=== PATIENT | female | born 1995 | race Caucasian/White ===

== ENCOUNTER 2019-11-09 22:09 | Inpatient (IN) ==
[2019-11-09] MEDS ORDERED: LORazepam 0.5 MG TAB PO STA (22:45)
--- NOTE | 2019-11-09 22:52 | Emergency Department Note ---
Entered by Khushboo Alvarado acting as a scribe for History of Present Illness General Chief complaint: Mental Health Evaluation Stated complaint: MENTAL HEALTH EVALUATION Time Seen by Provider: 11/09/19 22:31 Source: patient History of Present Illness Onset (ago): minute(s) (30) Location: head (general) Pain Consistency: + other (episode) Quality: + other (anxiety attack) Associated symptoms: + other (hearing voices) The patient is a 24 year old female who presents to the Emergency Room with complaints of an episode of an anxiety attack in which the patient was worried about stabbing herself occurring 30 minutes ago. She states there were a number of voices in her head telling her all the things she needed to do. The patient denies any previous attempts to hurt herself or previous admissions to the hospital. She denies calling any crisis hotlines tonight. She states she has a therapist, but notes it is only a text message service which she does not think helps. The patient reports she is paroxetine which she did not take tonight. She denies any recent sickness. She reports her last normal menstrual period was a few days ago. Home Medications Home Medications Medication Instructions Recorded Confirmed Type ondansetron 4 mg PO BID PRN 06/22/19 11/09/19 History paroxetine HCl 20 mg PO DAILY 08/28/19 11/09/19 History promethazine 12.5 mg PO Q6H PRN 08/31/19 11/09/19 History Allergies Allergy/AdvReac Type Severity Reaction Status Date / Time No Known Allergies Allergy Verified 08/31/19 21:39 Past Med/Surg History Medical History Anxiety (Chronic) Chronic ITP (idiopathic thrombocytopenia) (Chronic) IBS (irritable bowel syndrome) (Chronic) Surgical History History of ear surgery (Resolved) Right Family History Other No pertinent family history Social History Preferred Language: Tajik Feels Safe at Home: Yes Smoking Status: Never smoker Review of Systems See HPI for pertinent positives & negatives. and A total of 10 systems reviewed and were otherwise negative Physical Exam Vital Signs Vital Signs - 24 hr 11/09/19 22:21 11/10/19 00:05 11/10/19 02:20 Temperature 36.7 C Temperature Source Oral Pulse Rate 86 76 Pulse Rate [Finger] 67 Respiratory Rate 18 16 16 Respiratory Effort / Characteristics Non-Labored Spontaneous Non-Labored Spontaneous Respiratory Depth Normal Normal Respiratory Pattern Regular Blood Pressure 115/69 119/78 Blood Pressure [Left Arm] 96/50 L Blood Pressure Mean 84 Blood Pressure Mean [Left Arm] 65 Blood Pressure Position Sitting Pulse Oximetry 100 99 98 Oxygen Delivery Method Room Air Room Air Room Air Sepsis Recent Fever Within 48 Hours No Sepsis New/Unexplained Change in Mental Status No Sepsis Action Taken by Nursing No Action Required GENERAL: The patient is awake and alert. She is somewhat anxious appearing but overall comfortable. EYES: The conjunctivae are clear. The pupils are round and reactive. EARS, NOSE, MOUTH AND THROAT: The nose is without any evidence of any deformity. Mucous membranes are moist. Tongue is midline. NECK: The neck is nontender and supple. RESPIRATORY: Normal respiratory effort is noted there is no evidence of wheezing rhonchi or rales CARDIOVASCULAR: Regular rate and rhythm noted there no murmurs rubs or gallops normal S1 normal S2. GASTROINTESTINAL: The abdomen is soft. Abdomen is nontender. MUSCULOSKELETAL/EXTREMITIES: There is no evidence of gross deformity full range of motion is noted in the hips and shoulders. SKIN: There is no obvious evidence of any rash. There are no petechiae, pallor or cyanosis noted. NEUROLOGIC: Patient is awake alert and oriented x3. PSYCH: The patient is awake and alert. She makes good eye contact. Her affect is flat. She is currently denying any suicidal or homicidal ideation. Course Course 2236: Past medical records reviewed. The patient was evaluated in room A06. A complete history and physical exam was performed. 2300: The patient spoke with Kaelyn and decided she wants to stay in the hosp ital. 0030: The patient is medically clear. 0230: Upon reevaluation, I discussed findings and results with the patient. She verbalized agreement of the treatment plan. The patient will be evaluated for further management and care in [address] [place] [id number]. Administered Medications Discontinued Medications Lorazepam (Ativan) 0.5 mg PO NOW STA Stop: 11/09/19 22:46 Last Admin: 11/09/19 22:49 Dose: 0.5 mg Documented by: [id number] Medical Decision Making Differential Diagnosis Differential diagnoses considered include mood disorder, infection, hy poglycemia, electrolyte abnormalities, cardiac sources, intracerebral event, toxicologic, neurologic, as well as others. Medical Records Attestation: I reviewed the patient's medical records. Home Medications Current Medication List: was personally reviewed by me Laboratory Data Attestation: I reviewed the patient's lab results. Result diagrams: 11/09/19 23:32 11/09/19 23:32 Lab Results 11/09/19 11/09/19 11/09/19 Range/Units 22:45 22:45 23:32 WBC 5.32 (4.8-10.8) K/uL RBC 3.86 L (4.2-5.4) M/uL Hgb 12.0 (12.0-16.0) g/dL Hct 34.9 L (37-47) % MCV 90.4 (80-100) fL MCH 31.1 (25-34) pg MCHC 34.4 (32-36) g/dL RDW Std Deviation 42.9 (36.4-46.3) fL RDW Coeff of Nina 13.3 (11.5-14.5) % Plt Count 56 L (130-400) K/uL MPV 12.4 H (7.4-10.4) fL Immature Gran % (Auto) 0.6 % Neut % (Auto) 60.3 % Lymph % (Auto) 27.8 % [place] % (Auto) 9.6 % Eos % (Auto) 1.3 % Baso % (Auto) 0.4 % Immature Gran # (Auto) 0.03 H (0.00-0.02) K/uL Neut # (Auto) 3.21 (1.4-6.5) K/uL Lymph # (Auto) 1.48 (1.2-3.4) K/uL [place] # (Auto) 0.51 (0.11-0.59) K/uL Eos # (Auto) 0.07 (0-0.5) K/uL Baso # (Auto) 0.02 (0-0.2) K/uL Toxic Vacuolation Occasional Giant Platelets 1+ Polychromasia 1+ Ovalocytes 1+ Sodium (136-145) mmol/L Potassium (3.5-5.1) mmol/L Chloride (98-107) mmol/L Carbon Dioxide (21-32) mmol/L Anion Gap (3-11) BUN (7-18) mg/dl Creatinine (0.6-1.2) mg/dl Est Cr Clr Drug Dosing ml/min Est GFR ( Amer) Est GFR (Non-Af Amer) BUN/Creatinine Ratio (10-20) Glucose (70-99) mg/dl Calcium (8.5-10.1) mg/dl Total Bilirubin (0.2-1) mg/dl AST (15-37) U/L ALT (12-78) U/L Alkaline Phosphatase (45-117) U/L Total Protein (6.4-8.2) gm/dl Albumin (3.4-5.0) gm/dl Globulin (2.5-4.0) gm/dl Albumin/Globulin Ratio (0.9-2) TSH (0.300-4.500) uIu/ml HCG, Qual (Negative) Urine Color Yellow Urine Appearance Clear (Clear) Urine pH 8.0 H (4.5-7.5) Ur Specific [place] 1.024 (1.000-1.030) Urine Protein Negative (Negative) Urine Glucose (UA) Negative (Negative) Urine Ketones Negative (Negative) Urine Blood Negative (Negative) Urine Nitrite Negative (Negative) Urine Bilirubin Negative (Negative) Urine Urobilinogen Positive H (Negative) Ur Leukocyte Esterase Negative (Negative) Salicylates (2.8-20) mg/dl Urine Opiates Screen Neg (Neg) Ur Methadone, Qual Neg (Neg) Acetaminophen (10-30) ug/ml Urine Barbiturates Neg (Neg) Ur Phencyclidine (PCP) Neg (Neg) U Amphetamin/Meth Scrn Neg (Neg) MDMA (Ecstasy) Screen Neg (Neg) U Benzodiazepines Scrn Neg (Neg) Ur Cocaine Metabolite Neg (Neg) U Marijuana (THC) Screen Neg (Neg) Ethyl Alcohol mg/dL (0-3) mg/dl 11/09/19 11/09/19 11/09/19 Range/Units 23:32 23:32 23:32 WBC (4.8-10.8) K/uL RBC (4.2-5.4) M/uL Hgb (12.0-16.0) g/dL Hct (37-47) % MCV (80-100) fL MCH (25-34) pg MCHC (32-36) g/dL RDW Std Deviation (36.4-46.3) fL RDW Coeff of Nina (11.5-14.5) % Plt Count (130-400) K/uL MPV (7.4-10.4) fL Immature Gran % (Auto) % Neut % (Auto) % Lymph % (Auto) % [place] % (Auto) % Eos % (Auto) % Baso % (Auto) % Immature Gran # (Auto) (0.00-0.02) K/uL Neut # (Auto) (1.4-6.5) K/uL Lymph # (Auto) (1.2-3.4) K/uL [place] # (Auto) (0.11-0.59) K/uL Eos # (Auto) (0-0.5) K/uL Baso # (Auto) (0-0.2) K/uL Toxic Vacuolation Giant Platelets Polychromasia Ovalocytes Sodium 139 (136-145) mmol/L Potassium 3.9 (3.5-5.1) mmol/L Chloride 106 (98-107) mmol/L Carbon Dioxide 31 (21-32) mmol/L Anion Gap 2.0 L (3-11) BUN 10 (7-18) mg/dl Creatinine 0.57 L (0.6-1.2) mg/dl Est Cr Clr Drug Dosing 124.8 ml/min Est GFR ( Amer) 149.3 Est GFR (Non-Af Amer) 128.8 BUN/Creatinine Ratio 17.9 (10-20) Glucose 76 (70-99) mg/dl Calcium 8.4 L (8.5-10.1) mg/dl Total Bilirubin 0.3 (0.2-1) mg/dl AST 12 L (15-37) U/L ALT 19 (12-78) U/L Alkaline Phosphatase 187 H (45-117) U/L Total Protein 6.3 L (6.4-8.2) gm/dl Albumin 3.5 (3.4-5.0) gm/dl Globulin 2.8 (2.5-4.0) gm/dl Albumin/Globulin Ratio 1.3 (0.9-2) TSH 4.210 (0.300-4.500) uIu/ml HCG, Qual (Negative) Urine Color Urine Appearance (Clear) Urine pH (4.5-7.5) Ur Specific [place] (1.000-1.030) Urine Protein (Negative) Urine Glucose (UA) (Negative) Urine Ketones (Negative) Urine Blood (Negative) Urine Nitrite (Negative) Urine Bilirubin (Negative) Urine Urobilinogen (Negative) Ur Leukocyte Esterase (Negative) Salicylates < 1.7 L (2.8-20) mg/dl Urine Opiates Screen (Neg) Ur Methadone, Qual (Neg) Acetaminophen < 2 L (10-30) ug/ml Urine Barbiturates (Neg) Ur Phencyclidine (PCP) (Neg) U Amphetamin/Meth Scrn (Neg) MDMA (Ecstasy) Screen (Neg) U Benzodiazepines Scrn (Neg) Ur Cocaine Metabolite (Neg) U Marijuana (THC) Screen (Neg) Ethyl Alcohol mg/dL < 3.0 (0-3) mg/dl 11/09/19 Range/Units 23:32 WBC (4.8-10.8) K/uL RBC (4.2-5.4) M/uL Hgb (12.0-16.0) g/dL Hct (37-47) % MCV (80-100) fL MCH (25-34) pg MCHC (32-36) g/dL RDW Std Deviation (36.4-46.3) fL RDW Coeff of Nina (11.5-14.5) % Plt Count (130-400) K/uL MPV (7.4-10.4) fL Immature Gran % (Auto) % Neut % (Auto) % Lymph % (Auto) % [place] % (Auto) % Eos % (Auto) % Baso % (Auto) % Immature Gran # (Auto) (0.00-0.02) K/uL Neut # (Auto) (1.4-6.5) K/uL Lymph # (Auto) (1.2-3.4) K/uL [place] # (Auto) (0.11-0.59) K/uL Eos # (Auto) (0-0.5) K/uL Baso # (Auto) (0-0.2) K/uL Toxic Vacuolation Giant Platelets Polychromasia Ovalocytes Sodium (136-145) mmol/L Potassium (3.5-5.1) mmol/L Chloride (98-107) mmol/L Carbon Dioxide (21-32) mmol/L Anion Gap (3-11) BUN (7-18) mg/dl Creatinine (0.6-1.2) mg/dl Est Cr Clr Drug Dosing ml/min Est GFR ( Amer) Est GFR (Non-Af Amer) BUN/Creatinine Ratio (10-20) Glucose (70-99) mg/dl Calcium (8.5-10.1) mg/dl Total Bilirubin (0.2-1) mg/dl AST (15-37) U/L ALT (12-78) U/L Alkaline Phosphatase (45-117) U/L Total Protein (6.4-8.2) gm/dl Albumin (3.4-5.0) gm/dl Globulin (2.5-4.0) gm/dl Albumin/Globulin Ratio (0.9-2) TSH (0.300-4.500) uIu/ml HCG, Qual Negative (Negative) Urine Color Urine Appearance (Clear) Urine pH (4.5-7.5) Ur Specific [place] (1.000-1.030) Urine Protein (Negative) Urine Glucose (UA) (Negative) Urine Ketones (Negative) Urine Blood (Negative) Urine Nitrite (Negative) Urine Bilirubin (Negative) Urine Urobilinogen (Negative) Ur Leukocyte Esterase (Negative) Salicylates (2.8-20) mg/dl Urine Opiates Screen (Neg) Ur Methadone, Qual (Neg) Acetaminophen (10-30) ug/ml Urine Barbiturates (Neg) Ur Phencyclidine (PCP) (Neg) U Amphetamin/Meth Scrn (Neg) MDMA (Ecstasy) Screen (Neg) U Benzodiazepines Scrn (Neg) Ur Cocaine Metabolite (Neg) U Marijuana (THC) Screen (Neg) Ethyl Alcohol mg/dL (0-3) mg/dl Blood Pressure Blood Pressure Findings: Normal blood pressure MDM Narrative The patient is a 24-year-old female who presented to the emergency department for an evaluation of anxiety and suicidal ideation. The patient does have a history of anxiety in the past. The patient was medically cleared in the emergency department. She was treated for anxiety in the emergency department. She was reevaluated multiple times. She was evaluated by the emergency department pillowcase maker and was felt to be a good candidate for inpatient management. The patient was agreeable to inpatient management and was evaluated by the delegate from [facility] The patient was accepted to [facility] for further inpatient management of her mental health issues. She was feeling much better on subsequent reevaluation. Impression & Plan Depression with suicidal ideation, Chronic ITP (idiopathic thrombocytopenia), Anxiety Discharge Plan Visit Data *Final* Discharge Date/Time: 11/10/19 02:20 Chief Complaint: Mental Health Evaluation Stated Complaint: MENTAL HEALTH EVALUATION ED Provider: Santosh Mcgregor Discharge Problem: Depression with suicidal ideation, Chronic ITP (idiopathic thrombocytopenia), Anxiety Patient Disposition: Being Evaluated by Hospitalist Discharge Instructions Interventions: ED Discharge Assessment Last Done: 11/10/19 02:20 Forms Stand Alone Forms: My [facility], Suicide Prevention Resources Prescriptions Prescriptions: No Action ondansetron 4 mg tablet,disintegrating 4 mg PO BID PRN (Reason: Nausea And Vomiting) RF: 0 promethazine 25 mg tablet 12.5 mg PO Q6H PRN (Reason: Nausea) RF: 0 paroxetine HCl 20 mg tablet 20 mg PO DAILY RF: 0 Referrals Referrals: Grover Villagomez MD [Primary Care Provider] - The scribe's documentation has been prepared under my direction and personally reviewed by me in its entirety. I confirm that the note above accurately reflects all work, treatment, procedures, and medical decision making performed by me.
[2019-11-09 23:19] LABS: Appearance Urine Clear (Clear); Bilirubin Urine Negative (Negative); Blood Urine Negative (Negative); Color Urine Yellow; Glucose Urine UA Negative (Negative); Ketones Urine Negative (Negative); Leukocyte Esterase Urine Negative (Negative); Nitrite Urine Negative (Negative); Protein Urine Negative (Negative); Specific Gravity Urine 1.024 (1.000-1.030); Urobilinogen Urine Positive (Negative)
[2019-11-09 23:38] LABS: Amphetamines+Metham, Urine Neg (Neg); Barbiturates, Urine Neg (Neg); Benzodiazepine, Urine Neg (Neg); Cocaine, Urine Neg (Neg); MDMA (Ecstacy), Urine Neg (Neg); Methadone, Urine Neg (Neg); Opiate, Urine Neg (Neg); Phencyclidine, Urine Neg (Neg)
[2019-11-09 23:46] LABS: Hematocrit (blood only) 34.9 % (37-47); Mean Corpuscular Hemoglobin 31.1 pg (25-34); Mean Corpuscular Hgb Conc 34.4 g/dL (32-36); Mean Corpuscular Volume 90.4 fL (80-100); Mean Platelet Volume 12.4 fL (7.4-10.4); Platelet Count 56 K/uL (130-400); RDW Coefficient of Variation 13.3 % (11.5-14.5); RDW Standard Deviation 42.9 fL (36.4-46.3); Red Blood Count 3.86 M/uL (4.2-5.4); White Blood Count 5.32 K/uL (4.8-10.8)
[2019-11-10 00:06] LABS: Albumin Level 3.5 gm/dl (3.4-5.0); BUN Creatinine Ratio 17.9 (10-20); Calcium 8.4 mg/dl (8.5-10.1); Creatinine Clr Calc Pharmacy 124.8 ml/min; Est GFR (African American) 149.3; Est GFR (Non-African American) 128.8; Potassium 3.9 mmol/L (3.5-5.1)
[2019-11-10 00:11] LABS: Pregnancy Test, Serum Negative (Negative)
[2019-11-10 00:14] LABS: Basophils # (auto) 0.02 K/uL (0-0.2); Basophils % (auto) 0.4 %; Eosinophils # (auto) 0.07 K/uL (0-0.5); Eosinophils % (auto) 1.3 %; Giant Platelets 1+; Immature Granulocytes # (auto) 0.03 K/uL (0.00-0.02); Immature Granulocytes % (auto) 0.6 %; Lymphocytes # (auto) 1.48 K/uL (1.2-3.4); Lymphocytes % (auto) 27.8 %; Monocytes # (auto) 0.51 K/uL (0.11-0.59); Monocytes % (auto) 9.6 %; Neutrophils # (auto) 3.21 K/uL (1.4-6.5); Neutrophils % (auto) 60.3 %; Ovalocytes 1+; Polychromasia 1+; Toxic Vacuolation Occasional
[2019-11-10 00:17] LABS: Albumin Globulin Ratio 1.3 (0.9-2); Bilirubin,Total 0.3 mg/dl (0.2-1); Globulin 2.8 gm/dl (2.5-4.0); Thyroid Stimulating Hormone 4.21 uIu/ml (0.300-4.500); Total Protein 6.3 gm/dl (6.4-8.2)
[2019-11-10 00:25] LABS: Acetaminophen < 2 ug/ml (10-30); Salicylate < 1.7 mg/dl (2.8-20)
[2019-11-10] MEDS ORDERED: MAGNESIUM HYDROXIDE SUSP 30 ML UDC PO PRN (03:29)
[2019-11-10] MEDS ORDERED: BISMUTH SUBSALICYLATE PER ML OMNICELL CHARGE PO PRN (03:29)
[2019-11-10] MEDS ORDERED: SODIUM CHLORIDE 0.65% NA SOLN 45 ML (OCEAN) PRN (03:29)
[2019-11-10] MEDS ORDERED: ACETAMINOPHEN 325 MG TAB PO PRN (03:29)
[2019-11-10] MEDS ORDERED: PARoxetine HCl 20 MG TAB PO SCH (09:00)
[2019-11-10] MEDS: ONDANSETRON 4 MG OD TAB PO PRN ×2 (10:48→22:55)
[2019-11-10] MEDS ORDERED: LORazepam 0.5 MG TAB PO PRN (15:13)
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
[2019-11-10] MEDS: LUBIPROSTONE 24 MCG PO SCH (21:38)
--- NOTE | 2019-11-11 08:32 | Psychiatric Progress Note ---
Date of Service November 11, 2019 Impression / Recommendations Impression This is the first psychiatric hospitalization for this 24-year-old woman who presented with suicidal ideation and intrusive thoughts of causing herself physical harm by stabbing herself. She describes a long history of various intrusive, alien, ego-dystonic thoughts that are distressing, recurrent thoughts of suicide, which were becoming more pronounced within the context of multiple psychosocial stressors. The clinical picture is complicated by the fact that the patient has chronic idiopathic thrombocytopenia purpura (also known as immune thrombocytopenia purpura) and a review of her platelet counts have shown that they have been as low as 35,000 within the past several months, with recent trend upward, and her most recent platelet count was 56,000. On admission, paroxetine was increased to 40mg, and lorazepam started. (1) Depression with suicidal ideation: 11/10 -The patient has been admitted to the [facility] behavioral health unit and is being monitored on suicide precautions. -We are encouraging the patient to participate actively in individual, group, activity, and family interventions during her stay. The patient's goal will be to improve her individual coping strategies and learn about her illness.. -The patient has been taking Paxil 20 mg a day for approximately a year. 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 The patient was cautioned that medication such as selective serotonin reuptake inhibitor may cause abnormal bleeding and altered platelet function, and she has been advised to continue to have her platelet count monitored and to be aware of symptoms of abnormal bleeding. The patient says that she is fully familiar with the symptoms and will continue to monitor. -The plan today is to increase the patient's dose of Paxil to 40 mg a day. 11/11 -Continue paroxetine, family meeting with parents today, will need referrals for outpatient care. (2) Anxiety: 11/10 -The patient gives a history of generalized anxiety, often worsened by situational variables. -The patient's generalized anxiety is intertwined with symptoms of obsessive- compulsive disorder, and the dyad of OCD and generalized anxiety collectively lead to substantial anxiety. -The patient's dose of Paxil is being increased to 40 mg a day starting tomorrow. -Because the patient also has panic episodes with shortness of breath, feelings of impending doom, and palpitations, and because these episodes are recurrent, I am adding lorazepam 0.5 mg by mouth up to twice a day as needed for panic attacks. Material risks, including but not limited to the risk of habituation, complicated physical withdrawal, the increased risk for falls and other accident, the potential for worsening depression, and cognitive slowing were reviewed with the patient and she indicated understanding. She does not have any history of misuse of chemical substances and agrees to be cautious in this regard. 11/11 -Continue Lorazepam 0.5 mg twice daily as needed, as patient states it was helpful and is tolerating it well. (3) Obsessive compulsive disorder: 11/10 -The patient provides data and support of the diagnosis obsessive-compulsive disorder. These include frequent checking, a certain degree of needing to place things in specific orders or sequences, and a long history of intrusive ego dystonic thoughts that she finds distressing and that she struggles to dismiss. -We have increased the dose of Paxil from 20 mg a day to 40 mg a day with the expectation that this will assist in the resolution of the patient's anxious distress associated with OCD. (4) Chronic ITP (idiopathic thrombocytopenia): 11/10 -Patient reports that she has her platelet counts regularly monitored by a cabinetmaker helper in [place], [place]. She is aware of that medication such as Paxil can adversely affect platelet function and resulted in abnormal bleeding, and she has agreed to alert her physician in the event that she not ices any sign of abnormal bleeding, such as bruising, hemoptysis, melena, epistaxis, or delayed clotting. (5) IBS (irritable bowel syndrome): 11/10 -The patient is currently undergoing a series of tests, including endoscopy, because of chronic constipation, alternating periodically with diarrhea. -The plan is for the patient to continue her outpatient evaluation. Inventory Assets Strengths: Intelligent. Active support from her boyfriend. Good family support. Steady employment. Drug/alcohol free. Committed to treatment. Good social skills. Needs: Improvement in OCD symptoms. Improvement in anxiety symptoms. Resolution of suicidal ideation. Risk Factors Assessment Male: No : Yes Do You Have Access To A Gun?: No Health Problems: No Mental Health Diagnoses: Yes Substance Use Disorders: No Previous Attempt: No Previous Psychiatric Hospitalization: No Hopelessness: No Smoker: No Protective Factors Assessment Mu-Ism Beliefs: No : No Responsible for Young Children: No Employed: Yes ([employer]) Stable Relationships: Yes Supportive Family: Yes Good Rapport with Provider: Yes Absence of Any Risk Factors Above: No Interval History Identifying Information LETY ODEN is a 24-year-old F who currently lives in [place] with her boyfriend and a roommate, has a history of OCD, depression and idiopathic thrombocytopenia, and was admitted on 11/10/19 02:01 on a 201 voluntary commitment for suicidal ideation with intrusive thoughts to stab herself. Chief Complaint "I feel like I'm getting a little bit better". Review of Systems Sleep Information Total Hours of Sleep: 6 Meal Information Percent Meal Consumed - Breakfast: 30 Percent Meal Consumed - Lunch: 65 Percent Meal Consumed - Dinner: 50 Subjective Subjective Patient was seen & assessed and interval progress reviewed with nursing and social work. Staff report she has a meeting with her parents today, who are coming from [place]. She has expressed guilt regarding her financial mismanagement. On my assessment, she was retrieved from bed mid-day, and reports she is feeling more hopeful due to medication changes and learning new coping skills. Reports some dizziness which she attributes to medication increase and not eating much, "I'm a very picky eater." She wants to discuss discharge plans during her family meeting, stating she has financial problems due to credit card debt, and needs to decide if she is going to stay here or move back home. She would like to get a local psychiatrist and therapist. She reports ongoing suicidal thoughts, stating she does not want to act on them, and feels safe here. Sleep was "okay," but reports nightmares which worsens mood. She states she went to the morning groups, but was "really tired" so went to take a nap, but plans to go to groups again this afternoon. She is asking about getting an emotional support animal, stating she and her roommate each already have a cat, and her landlord has limited pets to 2/unit, so she wants a letter so that she can get an additional pet. Physical Exam Psychiatric Orientation: alert and cooperative Apperance: appropriately dressed, appropriately groomed and appeared stated age Hooded sweatshirt with marvin up, glasses. Eye Contact: good eye contact Motor Behavior: steady gait and station and no abnormal motor movements Speech: normal rate/rhythm/volume of speech Affect: + depressed affect, + anxious affect and mood congruent with affect Mood: + depressed mood and + anxious mood Thought Process: goal directed thought process Thought Content: reality based without delusions Suicidal Thoughts: + reports suicidal thoughts Homicidal Thoughts: denies homicidal thoughts Hallucinations: no auditory hallucinations Cognition: recent memory grossly intact, attention grossly intact and language grossly intact Insight: + fair insight Judgement: + fair judgement Vital Signs (Past 24 Hours) Last Vital Signs Temp 36.5 C 11/11/19 06:00 Pulse 80 11/11/19 06:38 Resp 18 11/11/19 06:00 BP 103/71 11/11/19 06:38 Pulse Ox 98 11/10/19 02:20 Results & Data ([facility]) Current Inpatient Medications Current Inpatient Medications: Current Inpatient Medications Acetaminophen (Tylenol) 650 mg PO Q4H PRN PRN Reason: Headache or Minor Fever Stop: 12/10/19 03:28 Al Hydrox/Mg Hydrox/Simethicone (Maalox) 30 ml PO Q4H PRN PRN Reason: GI Upset Stop: 12/10/19 03:28 Bismuth Subsalicylate (Kaopectate) 15 ml PO PRN PRN PRN Reason: Loose Stool Stop: 12/10/19 03:28 Hydroxyzine HCl (Vistaril) 50 mg PO HSZ PRN PRN Reason: Insomnia Stop: 12/10/19 03:28 Hydroxyzine HCl (Vistaril) 25 mg PO Q4H PRN PRN Reason: Anxiety Stop: 12/10/19 03:28 Lorazepam (Ativan) 0.5 mg PO BID PRN PRN Reason: Anxiety Stop: 12/10/19 20:59 Last Admin: 11/10/19 19:08 Dose: 0.5 mg Documented by: Lubiprostone (Amitiza) 1 ea PO BID NELSON Stop: 12/10/19 20:59 Last Admin: 11/10/19 21:38 Dose: 1 ea Documented by: Magnesium Hydroxide (Milk Of Magnesia) 30 ml PO DAILY PRN PRN Reason: Constipation Stop: 12/10/19 03:28 Ondansetron HCl (Zofran Odt) 4 mg PO BID PRN PRN Reason: Nausea And Vomiting Stop: 12/10/19 03:26 Last Admin: 11/10/19 22:55 Dose: 4 mg Documented by: Paroxetine HCl (Paxil) 40 mg PO DAILY NELSON Stop: 12/11/19 08:59 Sodium Chloride ([place] Nasal) 1 - 2 sprays NA PRN PRN PRN Reason: Nasal Dryness/Congestion Stop: 12/10/19 03:28 Mental Health & Subst Abuse Tx Therapist Name of Therapist: none Hourly Associate Name of Hourly Associate: none Post Discharge Appointments Primary Care Physician Name Of Family Doctor: Moiz Holbrook MD Contact Information Discharge Address: [address] [place] [id number]
[2019-11-11] MEDS: PARoxetine HCl 20 MG TAB PO SCH (09:10)
[2019-11-11] MEDS: LUBIPROSTONE 24 MCG PO SCH ×2 (09:11→21:10)
[2019-11-11] MEDS: ONDANSETRON 4 MG OD TAB PO PRN (10:27)
[2019-11-11] MEDS: ALUMINUM/MAGNESIUM SUSP 30 ML UDC PO PRN (22:00)
[2019-11-12] MEDS: LUBIPROSTONE 24 MCG PO SCH ×2 (08:52→21:45)
[2019-11-12] MEDS: PARoxetine HCl 20 MG TAB PO SCH (08:52)
--- NOTE | 2019-11-12 09:00 | Psychiatric Progress Note ---
Date of Service November 12, 2019 Impression / Recommendations Impression This is the first psychiatric hospitalization for this 24-year-old woman who presented with suicidal ideation and intrusive thoughts of causing herself physical harm by stabbing herself. She describes a long history of various intrusive, alien, ego-dystonic thoughts that are distressing, recurrent thoughts of suicide, which were becoming more pronounced within the context of multiple psychosocial stressors. The clinical picture is complicated by the fact that the patient has chronic idiopathic thrombocytopenia purpura (also known as immune thrombocytopenia purpura) and a review of her platelet counts have shown that they have been as low as 35,000 within the past several months, with recent trend upward, and her most recent platelet count was 56,000. On admission, paroxetine was increased to 40mg, and lorazepam started. Encouraging use of hydroxyzine for sleep, as reports broken sleep. (1) Depression with suicidal ideation: 11/10 -The patient has been admitted to the [facility] behavioral health unit and is being monitored on suicide precautions. -We are encouraging the patient to participate actively in individual, group, activity, and family interventions during her stay. The patient's goal will be to improve her individual coping strategies and learn about her illness.. -The patient has been taking Paxil 20 mg a day for approximately a year. 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 The patient was cautioned that medication such as selective serotonin reuptake inhibitor may cause abnormal bleeding and altered platelet function, and she has been advised to continue to have her platelet count monitored and to be aware of symptoms of abnormal bleeding. The patient says that she is fully familiar with the symptoms and will continue to monitor. -The plan today is to increase the patient's dose of Paxil to 40 mg a day. 11/11 -Continue paroxetine, family meeting with parents today, will need referrals for outpatient care. 11/12 -Continue paroxetine, advised can use hydroxyine HS for sleep (broken sleep). -Will make referrals for therapy and psychiatry tomorrow when OP offices open. (2) Anxiety: 11/10 -The patient gives a history of generalized anxiety, often worsened by situational variables. -The patient's generalized anxiety is intertwined with symptoms of obsessive- compulsive disorder, and the dyad of OCD and generalized anxiety collectively lead to substantial anxiety. -The patient's dose of Paxil is being increased to 40 mg a day starting tomorrow. -Because the patient also has panic episodes with shortness of breath, feelings of impending doom, and palpitations, and because these episodes are recurrent, I am adding lorazepam 0.5 mg by mouth up to twice a day as needed for panic attacks. Material risks, including but not limited to the risk of h abituation, complicated physical withdrawal, the increased risk for falls and other accident, the potential for worsening depression, and cognitive slowing were reviewed with the patient and she indicated understanding. She does not have any history of misuse of chemical substances and agrees to be cautious in this regard. 11/11 -Continue Lorazepam 0.5 mg twice daily as needed, as patient states it was helpful and is tolerating it well. -Explored healthy coping skills, ways to increase socialization, exercise, and sticking to a regular schedule. She plans to start attending denominational as a way to get out and meet new people. (3) Obsessive compulsive disorder: 11/10 -The patient provides data and support of the diagnosis obsessive-compulsive disorder. These include frequent checking, a certain degree of needing to place things in specific orders or sequences, and a long history of intrusive ego dystonic thoughts that she finds distressing and that she struggles to dismiss. -We have increased the dose of Paxil from 20 mg a day to 40 mg a day with the expectation that this will assist in the resolution of the patient's anxious distress associated with OCD. (4) Chronic ITP (idiopathic thrombocytopenia): 11/10 -Patient reports that she has her platelet counts regularly monitored by a entry level project coordinator in [place], [place]. She is aware of that medication such as Paxil can adversely affect platelet function and resulted in abnormal bleeding, and she has agreed to alert her physician in the event that she notices any sign of abnormal bleeding, such as bruising, hemoptysis, melena, epistaxis, or delayed clotting. (5) IBS (irritable bowel syndrome): 11/10 -The patient is currently undergoing a series of tests, including endoscopy, because of chronic constipation, alternating periodically with diarrhea. -The plan is for the patient to continue her outpatient evaluation. Inventory Assets Strengths: Intelligent. Active support from her boyfriend. Good family support . Steady employment. Drug/alcohol free. Committed to treatment. Good social skills. Needs: Improvement in OCD symptoms. Improvement in anxiety symptoms. Resolution of suicidal ideation. Risk Factors Assessment Male: No : Yes Do You Have Access To A Gun?: No Health Problems: No Mental Health Diagnoses: Yes Substance Use Disorders: No Previous Attempt: No Previous Psychiatric Hospitalization: No Hopelessness: No Smoker: No Protective Factors Assessment Roman Catholic Beliefs: No : No Responsible for Young Children: No Employed: Yes ([employer]) Stable Relationships: Yes Supportive Family: Yes Good Rapport with Provider: Yes Absence of Any Risk Factors Above: No Interval History Identifying Information LETY ODEN is a 24-year-old F who currently lives in [place] with her boyfriend and a roommate, has a history of OCD, depression and idiopathic thrombocytopenia, and was admitted on 11/10/19 02:01 on a 201 voluntary commitment for suicidal ideation with intrusive thoughts to stab herself. Chief Complaint "[]". Review of Systems Sleep Information Total Hours of Sleep: 6.5 Meal Information Percent Meal Consumed - Breakfast: 30 Percent Meal Consumed - Lunch: 50 Percent Meal Consumed - Dinner: 100 Subjective Subjective Patient was seen & assessed and interval progress reviewed with nursing and social work. Staff report she had a family meeting with her boyfriend and parents which went well, they were provided with information about her diagnoses, and were supportive. Her parents offered to pay for her rent and taxes, but want her to continue to work, although she said she can't, because she is anxious. They discussed her options of staying here or returning home, and she would like to stay here. On my assessment, she was retrieved from bed, and reports she slept poorly due to her roommate being up frequently. She also reports "really bad nightmares" nightly for the past year, which cause her to wake up and then has a hard time falling back to sleep, so often watches TV or social media on her phone. They are not about things that have happened to her, but are "weird scenarios." She reports feeling less anxious after her family meeting, as her parents agreed to help her with taxes and rent, and they talked about communication issues. She notes that "whenever there's a lack of communication, it makes me feel like they hate me." She often thinks that "they hate me," and wants them to reassure her that they love her. Feels she disappoints them due to inability to hold a job or manage her finances, "be the best person I can be." States she has had difficulty maintaining employment, with several jobs that have lasted <1 month. She has applied for multiple other jobs and is hopeful she will find something that is a good fit. States she doesn't think her medication is working as she still has anxiety. Reviewed that her SSRI was just increased 2 days ago and that it will take 4-6 weeks to see the full effect. She has been journaling, rating her mood daily and setting daily goals. She reports SI has improved, "still pops up" but feels better able to distract herself. She is feeling more hopeful about the future. Physical Exam Psychiatric Orientation: alert, oriented x 3 and cooperative Apperance: appropriately dressed and appropriately groomed Seated with legs tucked up under her on the chair, hooded sweatshirt with marvin pulled up, wearing glasses. Eye Contact: good eye contact Motor Behavior: steady gait and station and no abnormal motor movements Speech: normal rate/rhythm/volume of speech Affect: + blunted affect "A little better." Thought Process: goal directed thought process Thought Content: + cognitive distortions Suicidal Thoughts: denies suicidal thoughts Homicidal Thoughts: denies homicidal thoughts Hallucinations: no auditory hallucinations Cognition: recent memory grossly intact, attention grossly intact and language grossly intact Estimated Intelligence: consistent with education level Insight: + fair insight Judgement: + fair judgement Vital Signs (Past 24 Hours) Last Vital Signs Temp 36.4 C L 11/12/19 06:00 Pulse 75 11/12/19 06:00 Resp 16 11/12/19 06:00 BP 94/58 L 11/12/19 06:00 Pulse Ox 98 11/10/19 02:20 Results & Data ([facility]) Current Inpatient Medications Current Inpatient Medications: Current Inpatient Medications Acetaminophen (Tylenol) 650 mg PO Q4H PRN PRN Reason: Headache or Minor Fever Stop: 12/10/19 03:28 Last Admin: 11/11/19 10:14 Dose: 650 mg Documented by: Al Hydrox/Mg Hydrox/Simethicone (Maalox) 30 ml PO Q4H PRN PRN Reason: GI Upset Stop: 12/10/19 03:28 Last Admin: 11/11/19 22:00 Dose: 30 ml Documented by: Bismuth Subsalicylate (Kaopectate) 15 ml PO PRN PRN PRN Reason: Loose Stool Stop: 12/10/19 03:28 Hydroxyzine HCl (Vistaril) 50 mg PO HSZ PRN PRN Reason: Insomnia Stop: 12/10/19 03:28 Hydroxyzine HCl (Vistaril) 25 mg PO Q4H PRN PRN Reason: Anxiety Stop: 12/10/19 03:28 Lorazepam (Ativan) 0.5 mg PO BID PRN PRN Reason: Anxiety Stop: 12/10/19 20:59 Last Admin: 11/10/19 19:08 Dose: 0.5 mg Documented by: Lubiprostone (Amitiza) 1 ea PO BID NELSON Stop: 12/10/19 20:59 Last Admin: 11/12/19 08:52 Dose: 1 ea Documented by: Magnesium Hydroxide (Milk Of Magnesia) 30 ml PO DAILY PRN PRN Reason: Constipation Stop: 12/10/19 03:28 Ondansetron HCl (Zofran Odt) 4 mg PO BID PRN PRN Reason: Nausea And Vomiting Stop: 12/10/19 03:26 Last Admin: 11/11/19 10:27 Dose: 4 mg Documented by: Paroxetine HCl (Paxil) 40 mg PO DAILY NELSON Stop: 12/11/19 08:59 Last Admin: 11/12/19 08:52 Dose: 40 mg Documented by: Sodium Chloride ([place] Nasal) 1 - 2 sprays NA PRN PRN PRN Reason: Nasal Dryness/Congestion Stop: 12/10/19 03:28 Mental Health & Subst Abuse Tx Therapist Name of Therapist: none Director Of Software Development Name of Director Of Software Development: none Post Discharge Appointments Primary Care Physician Name Of Family Doctor: Moiz Holbrook MD Contact Information Discharge Address: [address] [place] [id number]
[2019-11-12] MEDS ORDERED: LORazepam 0.5 MG TAB PO PRN (09:35)
[2019-11-12] MEDS: ALUMINUM/MAGNESIUM SUSP 30 ML UDC PO PRN (15:07)
[2019-11-13] MEDS: PARoxetine HCl 20 MG TAB PO SCH (09:09)
[2019-11-13] MEDS: LUBIPROSTONE 24 MCG PO SCH (09:09)
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
== END 2019-11-13 14:17 | disposition home or self-care (01) | DRG 881 ==
LOC: ED 22:09 → SUATTDRO 11-10 02:01 → 3S 11-10 02:01 → ED 11-10 02:20 → 3S 11-10 10:55